=== PATIENT | male | born 1950 | race Caucasian/White ===

== ENCOUNTER → 2018-05-23 | Outpatient (CLI) | payer BC, MEDICARE ==
[~2018-05-23] VITALS: Ht 175.3 cm; Wt 88.9 kg
[~2018-05-23] MED LIST: ASP81TEC PO; ASPI-241 PO; CATHETER FLUSH 10 ML SYR IV PRN; FENO145T2 PO; NIA500ERT PO; REGADENOSON 0.4 MG/5 ML SYR (LEXISCAN) IV ONE; TADA2.5T PO; TICA90TA PO
[2018-05-23 09:46] VITALS: BP 175/107
--- NOTE | 2018-05-24 11:58 | STRESS TEST ---
DATE OF SERVICE: 05/23/2018 RESTING AND POST REGADENOSON TECHNETIUM-99M TETROFOSMIN SPECT CT IMAGING ORDERING PHYSICIAN: Marielos Bell APRN. PRIMARY PHYSICIAN: Dr. Hillman. OTHER PHYSICIAN: Solomon Barger MD, MA, FACP, FACC. CLINICAL DIAGNOSES: Coronary artery disease, hyperlipidemia. Baseline images were carried out after injection of 10.84 mCi of technetium-99m Tetrofosmin. This was followed by 0.4 mg regadenoson and 30.2 mCi of technetium-99m Tetrofosmin for stress imaging. The electrocardiogram showed sinus rhythm at baseline. It did not change significantly with the regadenoson infusion. Rare isolated premature ventricular contractions were seen. Review of images at rest and following stress does not indicate any distinct perfusion defects consistent with significant myocardial ischemia or infarction. Some count attenuation is seen in the diaphragmatic wall of the left ventricle, both at rest and following regadenoson infusion. This appears to be diaphragmatic attenuation. Gated images show normal global left ventricular systolic function with normal regional wall motion, including the diaphragmatic wall of the left ventricle. Left ventricular ejection fraction is calculated to be 71%. Left ventricular end-diastolic volume is 64 mL. TID is absent (1.02). CONCLUSIONS: 1. No evidence of any significant myocardial ischemia or infarction on this study. 2. Normal regional wall motion. 3. Normal global left ventricular systolic function with a calculated ejection fraction of 71%. Job ID: [id number] DocumentID: [id number] Dictated Date: 05/24/2018 09:42:20 Manufacturing Engineer Chief Date: 05/24/2018 11:58:01 Dictated By: SOLOMON BARGER MD, MAURICIO, FACP, FACC, [facility]
== END ==
LOC: CARD 07:31
PROVIDERS: ATTEND Nurse Practitioner Family
DX: I25.10 Atherosclerotic heart disease of native coronary artery without angina pectoris (principal); E78.5 Hyperlipidemia, unspecified; Z87.891 Personal history of nicotine dependence
CPT/HCPCS: 78452; 93017